=== PATIENT | female | born 1980 | race Caucasian/White ===

== ENCOUNTER 2020-07-29 19:03 | Emergency (ER) | payer OTHER ==
[~2020-07-29] VITALS: Ht 167.6 cm; Wt 68.0 kg
[~2020-07-29 19:03] MED LIST: LITHIUM CARBON150 MG PO; NAPROSYN500 MG PO
[2020-07-29 19:09] VITALS: BP 134/80
== END 2020-07-29 19:29 ==
LOC: ER 19:03
DX: F10.920 Alcohol use, unspecified with intoxication, uncomplicated (principal); F31.9 Bipolar disorder, unspecified; Z79.899 Other long term (current) drug therapy